=== PATIENT | female | born 1950 | race African-American/Black ===

== ENCOUNTER 2016-07-09 05:51 | Emergency (ER) | payer MEDICARE, OTHER, MEDICAID ==
[~2016-07-09] VITALS: Ht 160 cm; Wt 109.1 kg
[~2016-07-09 05:51] MED LIST: BUME1TAB12 PO; CA C1TAB73 PO; CALC600T2 PO; CARV12 PO; COMBIH IH; DULO60CA44 PO; ESTR0.5T PO; EXEN2PEN SQ; FAMO20VI5 IV; FERR1TAB45 PO; HYDR-3971 PO; LOSA25TA21 PO; MAGN400T6 PO; METF500T4 PO; MULT-1259 PO; OMEP10CA41 PO; POTA10CA44 PO; QUET300T2 PO; RISP1SOL10 PO; SPIR25TA4 PO; TIOT185 IH; TRAM100T28 PO
[2016-07-09 06:06] LABS: GLUCOSE,POINT OF CARE 111 MG/DL (70-110)
[2016-07-09] MEDS ORDERED: FERR325C PO (06:10)
[2016-07-09] MEDS ORDERED: LOSA50TA37 PO (06:10)
[2016-07-09] MEDS ORDERED: OxyCODONE HCL/ACETAMINOPHEN 10-325 MG TABLET PO ONE (11:15)
[2016-07-09 12:30] LABS: BASOPHILS % (AUTO) 0.5 % (0.0-2.0); EOSINOPHILS % (AUTO) 1.4 % (1.0-6.0); HEMATOCRIT 34.4 % (36-46); HEMOGLOBIN 10.8 g/dL (12.0-16.0); LYMPHOCYTES # (AUTO) 1.6 K/uL (1.0-4.8); MEAN CORPUSCULAR HEMOGLOBIN 27.6 pg (26.0-34.0); MEAN CORPUSCULAR HGB CONC 31.2 G/dL (31.0-37.0); MEAN CORPUSCULAR VOLUME 88 fL (80-100); MONOCYTES # (AUTO) 0.4 K/uL (0.1-1.0); MONOCYTES % (AUTO) 5.1 % (2.0-9.0); NEUTROPHILS # (AUTO) 5.3 K/uL (1.8-7.7); PLATELET COUNT (AUTO) 243 K/uL (150-450); RED CELL DISTRIBUTION WIDTH 15.7 % (11.5-14.5); WHITE BLOOD COUNT (AUTO) 7.4 K/uL (4.5-11.0)
[2016-07-09 12:38] LABS: CALCIUM, TOTAL 8.7 mg/dL (8.8-10.5); CREATININE 1.2 mg/dL (0.60-1.30)
[2016-07-09 12:44] LABS: ALBUMIN 2.9 g/dL (3.4-5.0); BILIRUBIN,TOTAL 0.5 mg/dL (0.1-1.0); TOTAL PROTEIN, SERUM 7.3 g/dL (6.4-8.2)
[2016-07-09] MEDS ORDERED: LIDOCAINE HCL BUFFERED 1% 20 ML VIAL INJ ONE (15:15)
[2016-07-09 15:36] LABS: GLUCOSE,POINT OF CARE 86 MG/DL (70-110)
[2016-07-09 18:02] VITALS: BP 105/61
== END 2016-07-09 18:03 | disposition home or self-care (01) ==
LOC: EMS 05:52
DX: M17.12 Unilateral primary osteoarthritis, left knee (principal); M25.462 Effusion, left knee; M25.062 Hemarthrosis, left knee; L03.116 Cellulitis of left lower limb; G89.29 Other chronic pain; I11.0 Hypertensive heart disease with heart failure; I50.9 Heart failure, unspecified; J44.9 Chronic obstructive pulmonary disease, unspecified; E78.00 Pure hypercholesterolemia, unspecified; Z88.6 Allergy status to analgesic agent
CPT/HCPCS: 20610; 36415; 73562; 80053; 82962; 85025; 87070; 87205; 99285; J3490